=== PATIENT | female | born 1985 | race Caucasian/White ===

== ENCOUNTER 2021-07-23 09:31 | Emergency (ER) | payer BC ==
[2021-07-23 10:06] LABS: HEMOGLOBIN 14.2 gm/dl (12.3-15.3); RED BLOOD COUNT 4.65 M/UL (4.00-5.10); WHITE BLOOD COUNT 11.1 K/UL (4.5-11.0)
[2021-07-23 10:34] LABS: BUN/CREATININE RATIO 13 (0-10)
[2021-07-23] MEDS ORDERED: CARAFATE1 GM PO (12:07)
[2021-07-23] MEDS ORDERED: ZOFRAN4 MG PO (12:07)
[2021-07-23] MEDS ORDERED: PROTONIX40 MG PO (12:07)
== END 2021-07-23 12:52 | disposition home or self-care (01) ==
LOC: ER1 09:31
PROVIDERS: Physician Assistant Medical
DX: K44.9 Diaphragmatic hernia without obstruction or gangrene (principal); R10.84 Generalized abdominal pain; K57.90 Diverticulosis of intestine, part unspecified, without perforation or abscess without bleeding; Z90.49 Acquired absence of other specified parts of digestive tract; Z87.891 Personal history of nicotine dependence
CPT/HCPCS: 80053; 81001; 82150; 82550; 82553; 83605; 83690; 83874; 84484; 84703; 85025; 93005; 96374; 96375; 99284; C9113; J2405; J7030; Q9967